=== PATIENT | female | born 1995 | race Caucasian/White ===

== ENCOUNTER → 2016-04-19 14:31 | Emergency (ER) | payer BC ==
[~2016-04-19 14:31] MED LIST: PPD test dose* 5 TU/0.1 ML TEST (*USE PPD ORDER SET*) ONE
== END | disposition home or self-care (01) ==
LOC: UCCORT 14:31 → OHCORT 14:31
DX: Z00.00 Encounter for general adult medical examination without abnormal findings (principal); Z23 Encounter for immunization; F41.9 Anxiety disorder, unspecified; F33.8 Other recurrent depressive disorders; F90.0 Attention-deficit hyperactivity disorder, predominantly inattentive type; Z88.0 Allergy status to penicillin

== ENCOUNTER 2017-06-07 16:27 | Emergency (ER) | payer BC ==
[2017-06-07 16:42] VITALS: BP 129/89
[2017-06-07] MEDS ORDERED: Ibuprofen TAB* 600 MG PO ONE (17:20)
--- NOTE | 2017-06-07 17:47 | RAD ---
INDICATION: Chest pain COMPARISON: None TECHNIQUE: PA and lateral dual-energy views were obtained. FINDINGS: Bones/Soft Tissues: There are no acute bony findings. Cardiomediastinal: The cardiomediastinal silhouette is normal. Lungs: There are no infiltrates. Pleura: There are no pleural effusions. Other: None IMPRESSION: NO ACTIVE DISEASE.
--- NOTE | 2017-06-07 20:10 | UC ---
Cardiac HPI - HPI Summary HPI Summary: Patient is an otherwise healthy 21-year-old female presenting to the with chief complaint of left-sided chest tightness which occurred approximately 1 hour prior to arrival. 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 She has never had these symptoms before. No cardiac history. Denies any shortness of breath or diaphoresis. Family history of cardiac pathologies include grandparents, specifically maternal grandfather with CHF and other family members with hypertension. No family member has of a cardiac pathology at an early age. Symptoms are aggravated with standing up straight, as well as moving the ipsilateral arm. Alleviated with nothing. She has not tried NSAIDs or other over the counters. She does not appear to be anxious, denies cocaine use, nonsmoker, pain is not worse with inspiration, denies calf pain or recent travel. - History of Current Complaint Chief Complaint: UCChestPain Stated Complaint: CHEST TIGHTNESS Time Seen by Provider: 06/07/17 16:38 Hx Obtained From: Patient Hx Last Menstrual Period: 05/06/17 Onset/Duration: Sudden Onset Timing: Constant Initial Severity: Mild Current Severity: Mild Pain Intensity: 1 Chest Pain Location: Left Anterior Character: Dull/Aching Aggravating Factor(s): Position Alleviating Factor(s): Position Associated Signs & Symptoms: Positive: Negative - Risk Factors Pulmonary Embolism Risk Factors: Negative Cardiac Risk Factors: Negative Atrial Fibrillation: Negative TAD Risk Factors: Negative - Allergy/Home Medications Allergies/Adverse Reactions: Allergies Allergy/AdvReac Type Severity Reaction Status Date / Time Penicillins Allergy Hives Verified 06/07/17 16:31 Home Medications: Home Medications BuPROPion XL* [Bupropion XL*] 300 mg PO DAILY 06/07/17 [History Confirmed ] Sertraline* [Zoloft*] 150 mg PO DAILY 06/07/17 [History Confirmed 06/07/17] PMH/Surg Hx/FS Hx/Imm Hx Previously Healthy: Yes - Surgical History Surgical History: None - Social History Occupation: Employed Full-time Lives: With Family Alcohol Use: Rare Substance Use Type: None Smoking Status (MU): Never Smoked Tobacco Review of Systems Constitutional: Negative Skin: Negative Respiratory: Negative Cardiovascular: Chest Pain Motor: Negative Neurovascular: Negative Musculoskeletal: Negative Neurological: Negative Is Patient Immunocompromised?: No All Other Systems Reviewed And Are Negative: Yes Physical Exam Triage Information Reviewed: Yes Appearance: Well-Appearing, Well-Nourished Vital Signs: Initial Vital Signs Temp 97.1 F 06/07/17 16:31 Pulse 93 06/07/17 16:31 Resp 16 06/07/17 16:31 BP 129/89 06/07/17 16:31 Pulse Ox 98 06/07/17 16:31 Vital Signs Reviewed: Yes Eye Exam: Normal Neck exam: Normal Neck: Positive: Supple, No Lymphadenopathy Respiratory Exam: Normal Respiratory: Positive: Chest non-tender, Lungs clear Cardiovascular Exam: Normal Cardiovascular: Positive: RRR Musculoskeletal Exam: Normal Musculoskeletal: Positive: Strength Intact Neurological Exam: Normal Neurological: Positive: Alert Psychological: Positive: Normal Response To Family Skin Exam: Normal - Assessment/Plan Course Of Treatment: During the course of treatment, the patient is immediately taken back to a room for an EKG. EKG shows normal sinus rhythm with a regular rate. Other vital signs are stable. Chest x-ray with no active cardiopulmonary disease. Patient is given 600 mg ibuprofen for a possible costochondritis versus other inflammation from carrying heavy objects during the day. I've discussed with the patient going to the emergency room for a further evaluation, however I see no need for this at this time as chest x-ray and EKG are within normal limits and patient has no prior cardiac history. Patient is okay with plan and discharged for home and states she will follow-up in the ED for any changing or worsening symptoms. I discussed this case with Dr. Lezama. Patient's symptoms improved slightly with ibuprofen. Palpation to the left anterior chest wall reproduces pain. - Differential Diagnoses - Chest Pain Differential Diagnosis/HQI/PQRI: Angina, Chest Wall - Clinical Impression Provider Diagnoses: Costchondritis Discharge - Sign-Out/Discharge Documenting (check all that apply): Discharge - Discharge Plan Condition: Stable Disposition: HOME Patient Education Materials: Costochondritis (ED) Referrals: Non Staff,Doctor [Primary Care Provider] - Additional Instructions: Ibuprofen 600mg three times daily as discussed, if any symptoms worsen, go to the ER immediately You may take your second dose of ibuprofen this evening before bed if you get short of breath, become sweaty or have heart palpitations or worsening chest pain - go to the ER your EKG and chest xray are both negative - Billing Disposition and Condition Condition: STABLE Disposition: HOME
== END 2017-06-07 18:34 | disposition home or self-care (01) ==
LOC: UCEAST 16:27
DX: M94.0 Chondrocostal junction syndrome [Tietze] (principal); Z88.0 Allergy status to penicillin
CPT/HCPCS: 71046; 93005; 99212; A9270-GY; G0463

== ENCOUNTER 2019-04-08 10:07 | Emergency (ER) | payer BC ==
[2019-04-08 10:21] VITALS: BP 138/97
--- NOTE | 2019-04-08 11:10 | UC ---
Complaint Female HPI - HPI Summary HPI Summary: 23 yo female presents with urinary symptoms. She tells me that for the last 2 days she has had a "low grade fever" off 99F. This morning she noticed burning during urination. Also mentions she has had some increased vaginal discharge over the last 4-5 days. Was last sexually active about 2 months ago with a new partner and is interested in STD check today. She denies fatigue, abdominal pain , n/v/d/c, back or flank pain, vaginal bleeding, hematuria. - History Of Current Complaint Chief Complaint: UCGU Stated Complaint: URINARY ISSUE Time Seen by Provider: 04/08/19 11:10 Hx Obtained From: Patient Hx Last Menstrual Period: 03/04/19 Onset/Duration: Gradual Onset Severity Initially: Moderate Severity Currently: Moderate Pain Intensity: 6 Pain Scale Used: 0-10 Numeric - Allergies/Home Medications Allergies/Adverse Reactions: Allergies Allergy/AdvReac Type Severity Reaction Status Date / Time Penicillins Allergy Hives Verified 04/08/19 10:21 Home Medications: Home Medications DULoxetine DR CAP* [Cymbalta CAP*] 1 tab PO DAILY 04/08/19 [History Confirmed ] PMH/Surg Hx/FS Hx/Imm Hx Psychological History: Anxiety, Depression - Surgical History Surgical History: None - Family History Known Family History: Positive: Non-Contributory - Social History Lives: With Family Alcohol Use: Rare Substance Use Type: None Smoking Status (MU): Never Smoked Tobacco Review of Systems All Other Systems Reviewed And Are Negative: No Constitutional: Positive: Negative Skin: Positive: Negative Respiratory: Positive: Negative Cardiovascular: Positive: Negative Gastrointestinal: Positive: Negative Genitourinary: Positive: Dysuria, Vaginal/Penile Discharge Neurovascular: Positive: Negative Neurological: Positive: Negative Psychological: Positive: Negative Physical Exam - Summary Physical Exam Summary: GENERAL: NAD. WDWN. No pain distress. SKIN: No rashes, sores, lesions, or open wounds. NECK: Supple. Nontender. No lymphadenopathy. CHEST: CTAB. No r/r/w. No accessory muscle use. Breathing comfortably and in no distress. CV: RRR. Pulses intact. Cap refill <2seconds ABDOMEN: Soft. NTTP. No distention or guarding. No CVA tenderness. Bowel sounds present NEURO: Alert. PSYCH: Age appropriate behavior. Triage Information Reviewed: Yes Vital Signs: Initial Vital Signs Temp 98 F 04/08/19 10:16 Pulse 122 04/08/19 10:16 Resp 18 04/08/19 10:16 BP 138/97 04/08/19 10:16 Pulse Ox 99 04/08/19 10:16 Laboratory Tests 04/08/19 04/08/19 11:28 11:31 POC Urine Color Carmella POC Urine Clarity Clear POC Urine pH 6.0 POC Ur Specif [place] >= 1.030 POC Urine Protein 1+ A POC Ur Glucose (UA) Negative POC Urine Ketones Trace POC Urine Blood Trace-intact POC Urine Nitrite Negative POC Urine Bilirubin 1+ A POC Urine Urobilinogen 0.2 POC U Leukocyte Esteras Negative POC Ur Test Negative Vital Signs Reviewed: Yes Pelvic Exam: Positive: External Exam Normal, No Cerv. Motion Tender, Discharge - mild white/brownish from cervical os, Other - Exam assisted by Saurav PATEL. Negative: Active Bleeding, Lesions, Mass, Tender w/ Cervical Motion, Tender Adnexa, Tender Uterus, Ulcers Complaint Female Dx - Course Course Of Treatment: UA as above. Urine negative. Cultures obtained for affirm and GC/C. Pelvic exam revealed mild/scant brownish white discharge. No odor. No evidence of PID. Recommended waiting for urine culture and vaginal cultures to return before starting treatment. Pt voiced understanding and agrees with plan. - Differential Dx/Diagnosis Provider Diagnosis: Vaginitis, Dysuria Discharge ED - Sign-Out/Discharge Documenting (check all that apply): Patient Departure All imaging exams completed and their final reports reviewed: No Studies - Discharge Plan Condition: Stable Disposition: HOME Patient Education Materials: Vaginitis (ED) Referrals: No Primary Care Phys,NOPCP [Primary Care Provider] - Additional Instructions: If you develop a fever, shortness of breath, chest pain, new or worsening symptoms - please call your PCP or go to the ED immediately. Your blood pressure was mildly elevated at todays visit. Please see your primary provider within 4 weeks for recheck and re-evaluation. We have drawn labwork and taken cultures to further evaluate your symptoms -- these results should be back over the course of the next 2-3 days and we will treat you as needed. - Billing Disposition and Condition Condition: STABLE Disposition: Home
[2019-04-08 17:02] LABS: Hepatitis B Surface Antigen Nonreactive (Nonreactive)
[2019-04-08 17:20] LABS: Hepatitis C Antibody Negative (Negative)
[2019-04-08 17:30] LABS: HIV 4th Generation Nonreactive (Nonreactive)
--- NOTE | 2019-04-09 07:05 | UC ---
- Progress Note Progress Note: Hepatitis C, B and A are negative. HIV is negative. Remaining studies are still pending and we will contact you once results return. Course/Dx - Diagnoses Provider Diagnoses: Vaginitis, Dysuria Discharge ED - Sign-Out/Discharge Documenting (check all that apply): Post-Discharge Follow Up All imaging exams completed and their final reports reviewed: No Studies - Discharge Plan Condition: Stable Disposition: HOME Patient Education Materials: Vaginitis (ED) Referrals: No Primary Care Phys,NOPCP [Primary Care Provider] - Additional Instructions: If you develop a fever, shortness of breath, chest pain, new or worsening symptoms - please call your PCP or go to the ED immediately. Your blood pressure was mildly elevated at todays visit. Please see your primary provider within 4 weeks for recheck and re-evaluation. We have drawn labwork and taken cultures to further evaluate your symptoms -- these results should be back over the course of the next 2-3 days and we will treat you as needed. - Billing Disposition and Condition Condition: STABLE Disposition: Home
[2019-04-09 12:56] LABS: Chlamydia trachomatis NAA Negative (Negative); Neisseria gonorrhoeae (GC) NAA Negative (Negative)
[2019-04-09 13:11] LABS: Trichomonas vag NAA Female Negative (Negative)
[2019-04-10 14:24] LABS: Herpes Simplex Virus I IgG AB Negative (Negative); Herpes Simplex Virus II IgG AB Negative (Negative)
== END 2019-04-08 13:02 | disposition home or self-care (01) ==
LOC: UCEAST 10:07
DX: R30.0 Dysuria (principal); N76.0 Acute vaginitis; F41.9 Anxiety disorder, unspecified; F32.9 Major depressive disorder, single episode, unspecified; Z79.899 Other long term (current) drug therapy; Z88.0 Allergy status to penicillin
CPT/HCPCS: 36415; 80074; 81003; 84702; 86695; 86696; 86780; 87086; 87389; 87480; 87491; 87510; 87591; 87661; 99211; G0463